=== PATIENT | male | born 1970 | race Caucasian/White ===

== ENCOUNTER 2019-08-17 01:54 | Emergency (ER) | payer SELFPAY ==
[~2019-08-17] VITALS: Ht 180.3 cm; Wt 70.3 kg
[2019-08-17] MEDS ORDERED: IBUPROFEN600 MG PO (02:49)
== END 2019-08-17 03:28 | disposition home or self-care (01) ==
LOC: ED 01:54
DX: S60.222A Contusion of left hand, initial encounter (principal); S60.512A Abrasion of left hand, initial encounter; W23.0XXA Caught, crushed, jammed, or pinched between moving objects, initial encounter; Y93.89 Activity, other specified; Y92.89 Other specified places as the place of occurrence of the external cause; Y99.8 Other external cause status